=== PATIENT | female | born 1945 | race Caucasian/White ===

== ENCOUNTER 2016-10-22 14:45 | Observation (INO) ==
[2016-10-22] MEDS ORDERED: Aspirin 81 MG TAB.CHEW PO ONE (14:49)
--- NOTE | 2016-10-22 14:57 | Emergency Department Note ---
Disposition Clinical Impression: Chest pain Qualifiers: Chest pain type: unspecified Qualified Code(s): R07.9 - Chest pain, unspecified Disposition: Admitted As Inpatient Condition: Fair Referrals: Elías,Shannon Fried CNP [Primary Care Provider] - Time of Disposition: 16:16 Chest Pain HPI - General Stated Complaint: Chest Pain Time Seen by Provider: 10/22/16 14:49 Source: patient Mode of arrival: ambulatory Limitations: no limitations Vital Signs Reviewed: Yes Nursing Notes Reviewed: Yes - History of Present Illness HPI Narrative: 70-year-old comes in complaining of chest tightness for the last couple of days. Patient has no history of heart disease. Risk factors include hypertension. The patient has had no cardiac workup for several years. Pt complaint: chest pain Onset (ago): day(s) (2) Duration: constant Onset: during rest Pain Location: substernal, left chest Severity: mild, moderate Quality: tightness Pain Radiation: none Improves with: movement Worsens with: nothing - Related Data Allergies Allergy/AdvReac Type Severity Reaction Status Date / Time No Known Allergies Allergy Verified 10/04/15 12:44 All systems ED: reviewed and negative except as stated. Constitutional: Denies: fever, chills, weakness, weight change Eyes: Denies: eye pain, eye discharge, vision change ENT ED: Denies: ear pain, throat pain, dental pain, hearing loss, epistaxis, congestion, dysphagia Cardiovascular: Reports: chest pain. Denies: palpitations, dyspnea on exertion , edema, syncope Respiratory: Denies: cough, dyspnea, wheezes, hemoptysis, stridor Gastrointestinal: Denies: abdominal pain, nausea, vomiting, diarrhea, constipation, hematemesis, melena, hematochezia Genitourinary: Denies: dysuria, frequency, hematuria, discharge Musculoskeletal: Denies: back pain, neck pain, arthralgia, myalgia Integumentary: Denies: rash, abrasion, lesions Neurological: Denies: headache, weakness, numbness, paresthesias, confusion, abnormal gait, vertigo Psychiatric: Denies: anxiety, depression, suicidal thoughts, homicidal thoughts , auditory hallucinations, visual hallucinations Endocrine: Denies: fatigue Hematological/Lymphatic: Denies: easy bleeding, easy bruising Allergic/Immunologic: Denies: facial swelling, urticaria Chest Pain PMH - Past Medical History Medical history: Reports: COPD, hypertension Surgical history: Reports: cataract Psychiatric history: Reports: no psych history - Social History Smoking Status: Current every day smoker Alcohol use: Reports: none Drug use: Reports: none Physical Exam - General Limitations: no limitations General appearance: alert, in no apparent distress - Head Head exam: atraumatic, normocephalic, normal inspection - Eye Eye exam: Present: normal appearance - ENT ENT exam: normal exam, normal oropharynx, mucous membranes moist - Neck Neck exam: Present: normal inspection, full ROM, trachea midline - Chest Chest inspection: Present: normal inspection, symmetric chest wall rise - Respiratory Respiratory exam: Present: normal lung sounds bilaterally - Cardiovascular Cardiovascular exam: Present: regular rate, normal rhythm, normal heart sounds - Abdominal Exam Abdominal exam: Present: soft, Non-Tender. Absent: tenderness, distention, guarding, rebound, rigidity - Extremities Exam Extremities exam: Present: normal inspection, full ROM. Absent: tenderness, pedal edema - Expanded Lower Extremity Exam Neurovascular/Tendon exam: Absent: motor deficit, sensory deficit, tendon deficit Gait: observed and normal - Back Exam Back exam: Present: normal inspection, full ROM. Absent: tenderness - Neurological Exam Neurological exam: Present: alert, oriented X3 - Psychiatric Psychiatric exam: Present: normal affect, normal mood - Skin Skin exam: Present: warm, dry, intact, normal color Course - Reevaluation(s) Reevaluation #1: 70-year-old with a history of hypertension who comes in complaining some intermittent chest pain for last few days. Patient's had no recent cardiac workup. Does have risk factors of hypertension, age. Patient will be admitted for evaluation. Time: 16:27 - Consultations Consultation #1: Discussed with Dr. Hernandez, admit. Time: 16:28 Vital Signs Temperature 98.1 F 10/22/16 14:49 Pulse Rate 76 10/22/16 14:49 Respiratory Rate 16 10/22/16 14:49 Blood Pressure 188/96 10/22/16 14:49 O2 Sat by Pulse Oximetry 97 10/22/16 14:49 Temperature 98.1 F 10/22/16 14:49 Pulse Rate 76 10/22/16 14:49 Respiratory Rate 16 10/22/16 14:49 Blood Pressure 188/96 10/22/16 14:49 O2 Sat by Pulse Oximetry 97 10/22/16 14:49 Oxygen Delivery Oxygen Delivery Room Air Chest Pain - Lab Data Lab results reviewed: Yes I reviewed the patient's lab results. Result diagrams: 10/22/16 15:30 10/22/16 15:30 Lab Results 10/22/16 10/22/16 10/22/16 Range/Units 15:30 15:30 15:30 WBC 8.2 (4.3-11.1) K/mcL RBC 4.76 (3.82-4.97) M/mcL Hgb 13.6 (11.5-15.4) g/dL Hct 42.5 (35.3-44.9) % MCV 89.3 (83.0-100.0) fL MCH 28.6 (28.0-33.3) pg MCHC 32.0 (31.6-35.5) g/dL RDW 14.0 (11.5-14.5) % Plt Count 229 (140-400) K/mcL MPV 10.1 (9.4-12.4) fL Immature Gran % 0.5 (0-4) % Seg Neutrophils % 65.9 % Lymphocytes % 23.7 % Monocytes % 8.3 % Eosinophils % 1.1 % Basophils % 0.5 % Neutrophils # 5.4 (1.6-8.9) K/mcL Lymphocytes # 1.9 (0.6-4.6) K/mcL Monocytes # 0.7 (0.0-1.3) K/mcL Eosinophils # 0.1 (0.0-0.6) K/mcL Basophils # 0.0 (0.0-0.2) K/mcL PT 11.3 (9.4-12.1) Seconds INR 1.0 APTT 27.0 (26.0-36.0) Seconds Sodium (136-145) mEq/L Potassium (3.5-4.5) mEq/L Chloride (98-109) mEq/L Carbon Dioxide (19-29) mEq/L BUN (7-20) mg/dL Creatinine (0.57-1.11) mg/dL Est GFR ( Amer) (> 60) Est GFR (Non-Af Amer) (> 60) BUN/Creatinine Ratio (6-26) Glucose (70-99) mg/dL Calculated Osmolality (280-300) Calcium (8.6-10.8) mg/dL Troponin I (0-0.03) ng/mL B-Natriuretic Peptide 223 H (0-100) pg/mL 10/22/16 10/22/16 Range/Units 15:30 15:30 WBC (4.3-11.1) K/mcL RBC (3.82-4.97) M/mcL Hgb (11.5-15.4) g/dL Hct (35.3-44.9) % MCV (83.0-100.0) fL MCH (28.0-33.3) pg MCHC (31.6-35.5) g/dL RDW (11.5-14.5) % Plt Count (140-400) K/mcL MPV (9.4-12.4) fL Immature Gran % (0-4) % Seg Neutrophils % % Lymphocytes % % Monocytes % % Eosinophils % % Basophils % % Neutrophils # (1.6-8.9) K/mcL Lymphocytes # (0.6-4.6) K/mcL Monocytes # (0.0-1.3) K/mcL Eosinophils # (0.0-0.6) K/mcL Basophils # (0.0-0.2) K/mcL PT (9.4-12.1) Seconds INR APTT (26.0-36.0) Seconds Sodium 141 (136-145) mEq/L Potassium 3.2 L (3.5-4.5) mEq/L Chloride 103 (98-109) mEq/L Carbon Dioxide 31 H (19-29) mEq/L BUN 15 (7-20) mg/dL Creatinine 0.99 (0.57-1.11) mg/dL Est GFR ( Amer) > 60 (> 60) Est GFR (Non-Af Amer) 55 L (> 60) BUN/Creatinine Ratio 15 (6-26) Glucose 119 H (70-99) mg/dL Calculated Osmolality 294 (280-300) Calcium 9.7 (8.6-10.8) mg/dL Troponin I 0.02 (0-0.03) ng/mL B-Natriuretic Peptide (0-100) pg/mL - EKG Data EKG attestation: Yes I reviewed and interpreted this EKG. EKG shows normal: sinus rhythm Rate: normal Rhythm: NSR Ectopy: PVC Interpretation: no acute changes, nonspecific ST-T wave changes Heart Score - Score History: Moderately Suspicious EKG: Non Specific repolarisation Disturbance Age: Greater than 65 Risk Factors: 1-2 risk factors Troponin: Less than normal limit HEART Score Total: 5
[2016-10-22 15:37] LABS: Basophils % 0.5 %; Eosinophils # 0.1 K/mcL (0.0-0.6); Eosinophils % 1.1 %; Hematocrit 42.5 % (35.3-44.9); Hemoglobin 13.6 g/dL (11.5-15.4); Immature Granulocytes % 0.5 % (0-4); Lymphocytes # 1.9 K/mcL (0.6-4.6); Lymphocytes % 23.7 %; Mean Corpuscular Hemoglobin 28.6 pg (28.0-33.3); Mean Corpuscular Volume 89.3 fL (83.0-100.0); Mean Platelet Volume 10.1 fL (9.4-12.4); Monocytes # 0.7 K/mcL (0.0-1.3); Monocytes % 8.3 %; Neutrophils # 5.4 K/mcL (1.6-8.9); Platelet Count 229 K/mcL (140-400); Red Blood Count 4.76 M/mcL (3.82-4.97); Segmented Neutrophils % 65.9 %
[2016-10-22 15:46] LABS: Prothrombin Time 11.3 Seconds (9.4-12.1)
[2016-10-22 15:51] LABS: BUN/Creatinine Ratio 15 (6-26); Blood Urea Nitrogen 15 mg/dL (7-20); Calcium 9.7 mg/dL (8.6-10.8); Carbon Dioxide 31 mEq/L (19-29); Chloride 103 mEq/L (98-109); Glucose 119 mg/dL (70-99); Osmolality,Calculated 294 (280-300); Potassium 3.2 mEq/L (3.5-4.5); Sodium 141 mEq/L (136-145); eGFR For African Americans > 60 (> 60); eGFR For Non-African Americans 55 (> 60)
[2016-10-22] MEDS ORDERED: Ipratropium/Albuterol Neb 3 ML IH ONE (16:16)
[2016-10-22] MEDS ORDERED: Naloxone 0.4 MG/ML INJ IVP PRN (17:05)
[2016-10-22] MEDS ORDERED: Acetaminophen 325 MG TABLET PO PRN (17:05)
--- NOTE | 2016-10-22 17:21 | Internal Med History&Physical ---
Date of Encounter: 10/22/16 Time of Encounter: 17:14 Assessment and Plan (1) Chest pain Current visit: Yes Status: Acute Acute CP with dyspnea for three days. HTN in the ED. EKG obtained and showed new st depression in v4, v5. Reports taking BB and HCTZ at home. Initial troponin negative at 0.02. Continue BB, and HCTZ Trend troponins, Echocardiogram ordered Nuclear exercise stress orderd O2 PRN Qualifiers: Chest pain type: unspecified Qualified Code(s): R07.9 - Chest pain, unspecified (2) HTN (hypertension) Current visit: Yes Status: Chronic H/O HTN. Initially elevated in the ED but has since become more stable with last SBP 155. Resume home BB and HCTZ, and continue to monitor and titrate as necessary. Adding IVP hydralazine PRN to assist with BP management. Hold metoprolol and NPO after midnight for nuclear stress in the AM. Qualifiers: Hypertension type: essential hypertension Qualified Code(s): I10 - Essential (primary) hypertension (3) COPD (chronic obstructive pulmonary disease) Current visit: Yes Status: Acute Acute on chronic COPD exacerbation. New chest pain and dyspnea. Responded favorably to breathing treatment. Duonebs QID. Continue home dose of Symbicort and albuterolol PRN. O2 as needed PRN maintain SP02 greater than 92% Qualifiers: COPD type: COPD with acute exacerbation Qualified Code(s): J44.1 - Chronic obstructive pulmonary disease with (acute) exacerbation (4) Hypokalemia due to loss of potassium Current visit: Yes Status: Acute Hypokalemia noted on ED labs, with potassium of 3.2 Likely d/t medications. 40meq potassium ordered for one time dose. Continue home dose of 10meq potassium tomorrow. BMP in the AM. (5) DVT prophylaxis Current visit: Yes Status: Acute Plan to start SC lovenox Internal Medicine - H&P: HPI Chief complaint: chest pain, dyspnea Admitted From: Home Plans for Post Hospital Care: Home History of present illness: Ms. Zamora is a 70 year old female with a PMH of HTN, and COPD who presented to [facility] on 10-22-16 with a CC of chest discomfort starting 3 days ago and worsening dyspnea. All information obtained from chart review and patient report. She describes the chest discomfort as constant pressure in the entire upperchest. She admits that the dyspnea is worse with activity. Patient denies any fevers, palpitations, edema, syncope, or worsening cough. Admits to worsening SOB, and intermittent dizziness for the last three days. She did receive a breathing treatment in the ED and admits that it did help with both the chest pain and dyspnea. HTN in the ED, a Troponin was drawn in the ED and was 0.02, hypokalemia noted in lab work. The plan is to admit her for observation and further workup and evaluation. Past Med Surg Social Fam HX - Past Medical History Medical history: COPD, hypertension Psychiatric history: no psych history - Past Surgical History Surgical History: cataract - Social History Smoking Status: Current every day smoker Alcohol use: none Drug use: none - Family History Sister History Unknown: Yes Adopted: Yes Race: Family Member Ethnicity: Non- Living Status: Unknown Hx Family Endocrine Disorder: Yes (DM) Internal Medicine - H&P: Meds Albuterol Sulfate [Ventolin Hfa] 2 puff IH Q4H PRN 10/22/16 [History] Budesonide/Formoterol 160/4.5 [Symbicort 160/4.5] 2 puff IH BIDR 10/22/16 [ History] Guaifenesin [Mucinex] 600 mg PO Q12H PRN 10/22/16 [History] Metoprolol [Lopressor] 50 mg PO BID 10/22/16 [History] Oxygen 2 l NS HS 10/22/16 [History] Potassium Chloride [Klor-Con 10] 10 meq PO DAILY 10/22/16 [History] hydroCHLOROthiazide [Hydrochlorothiazide] 12.5 mg PO DAILY 10/22/16 [History] Allergies No Known Allergies Allergy (Verified 10/04/15 12:44) All Systems PM: A 10-system review of systems was performed and is negative for pertinent findings except as documented above in the HPI. - Constitutional Constitutional: no chills, no fever(s), no night sweats - EENT Eyes: no change in vision, no discharge, no pain, no photophobia Ears: no ear discharge, no ear pain, no tinnitus Nose, mouth and throat: no dysphagia, no nasal discharge, no neck pain, no sore throat - Cardiovascular Cardiovascular ROS IM: chest pain, dyspnea on exertion, no diaphoresis, no edema , no irregular heart rhythm, no lightheadedness, no palpitations, no syncope Additional comments: Admits to worsening dyspnea on exertion - Respiratory Respiratory: dyspnea on exertion, no dyspnea, no wheezing, no pain on inspiration, no chest congestion, no excessive phlegm production, no pain with cough Additional comments: No appreciable changes in chronic COPD related cough - Gastrointestinal Gastrointestinal: no abdominal pain, no diarrhea, no hematemesis, no hematochezia, no melena, no nausea, no vomiting - Genitourinary Genitourinary: no change in urinary stream, no dysuria, no flank pain, no hematuria - Musculoskeletal Musculoskeletal ROS IM: no numbness, no tingling - Integumentary Integumentary IM: no rash, no unusual bruising - Neurological Neurological ROS: no confusion, no convulsions, no focal weakness, no numbness, no tingling, no tremor(s) - Hematologic/Lymphatic Hematologic/Lymphatic: no easy bruising - Constitutional Vitals: Temp Pulse Resp BP Pulse Ox 98.1 F 76 18 188/96 95 10/22/16 14:49 10/22/16 14:49 10/22/16 16:36 10/22/16 14:49 10/22/16 16:36 General appearance: Present: cooperative, A&O X 3, pleasant, no acute distress, answers questions appropriately - Head Head exam: Present: atraumatic, normocephalic - Eye Eye exam: Present: PERRL, conjuntiva pink, sclera anicteric Pupils: Present: PERRL - Neck Neck exam general surgery: Present: supple, trachea midline. Absent: lymphadenopathy - Respiratory Respiratory exam: Present: decreased breath sounds. Absent: accessory muscle use, rales, rhonchi Additional comments: Fine expiratory wheezing noted, however, she was not SOB and on RA at the time of exam. NAD - Cardiovascular Cardiovascular exam: Present: RRR, +S1, +S2. Absent: diastolic murmur, gallop, rubs, systolic murmur - GI/Abdominal GI/Abdominal exam: Present: normal bowel sounds, soft, no peritoneal signs. Absent: distended, tenderness - Extremities Exam Extremities exam: Present: warm, radial pulses palpable and symmetrical. Absent : calf tenderness, cyanotic, pedal edema - Expanded Lower Extremities Exam Lower Leg exam: Absent: swelling - Neurological Exam Neurological exam: Present: CN II-XII intact, oriented X3, no focal deficits. Absent: pronater drift, facial droop, speech deficit - Skin Skin exam: Present: dry, intact Internal Med - H&P Results - Labs CBC & Chem 7: 10/22/16 15:30 10/22/16 15:30 - EKG Data EKG shows normal: sinus rhythm, ST-T waves (old non-specific t wave) Rate: normal - EKG Data Prior EKG available for review: yes Interpretation IM: ischemic changes (possible ischemic changes noted in V4, V5 with ST depression in comparision to old EKG)
[2016-10-22] MEDS ORDERED: *HR* Metoprolol 5 MG/5 ML VIAL IVP PRN (17:41)
[2016-10-22] MEDS ORDERED: NON-FORMULARY MEDICATION 1 EACH EACH (Oxygen [Oxygen] 2 L) NS SCH (21:00)
[2016-10-22] MEDS: Budesonide/Formoterol 160/4.5 MDI IH SCH (21:30)
[2016-10-22] MEDS: Ipratropium/Albuterol Neb 3 ML IH SCH (21:30)
[2016-10-23] MEDS: Ipratropium/Albuterol Neb 3 ML IH SCH ×2 (04:03→11:28)
[2016-10-23] MEDS ORDERED: *HR* Enoxaparin 40 MG/0.4 ML SYRINGE SQ SCH (06:00)
[2016-10-23 06:56] LABS: Basophils % 0.5 %; Eosinophils # 0.1 K/mcL (0.0-0.6); Eosinophils % 1.2 %; Hematocrit 43.4 % (35.3-44.9); Hemoglobin 14.3 g/dL (11.5-15.4); Immature Granulocytes % 0.1 % (0-4); Immature Platelets 4.8 % (1.1-6.1); Lymphocytes # 2.3 K/mcL (0.6-4.6); Lymphocytes % 30.4 %; Mean Corpuscular HGB Conc 32.9 g/dL (31.6-35.5); Mean Corpuscular Hemoglobin 29.1 pg (28.0-33.3); Mean Corpuscular Volume 88.2 fL (83.0-100.0); Mean Platelet Volume 10.8 fL (9.4-12.4); Monocytes # 0.7 K/mcL (0.0-1.3); Monocytes % 8.6 %; Neutrophils # 4.6 K/mcL (1.6-8.9); Platelet Count 208 K/mcL (140-400); Red Blood Count 4.92 M/mcL (3.82-4.97); Segmented Neutrophils % 59.2 %
[2016-10-23 07:10] LABS: BUN/Creatinine Ratio 16 (6-26); Blood Urea Nitrogen 13 mg/dL (7-20); Calcium 9.4 mg/dL (8.6-10.8); Carbon Dioxide 29 mEq/L (19-29); Chloride 106 mEq/L (98-109); Glucose 97 mg/dL (70-99); Osmolality,Calculated 300 (280-300); Potassium 3.4 mEq/L (3.5-4.5); Sodium 145 mEq/L (136-145); eGFR For African Americans > 60 (> 60); eGFR For Non-African Americans > 60 (> 60)
[2016-10-23] MEDS ORDERED: Regadenoson 0.4 MG/5 ML SYRINGE IVP ONE (08:14)
[2016-10-23] MEDS ORDERED: hydroCHLOROthiazide 25 MG TABLET PO SCH (09:00)
[2016-10-23] MEDS: Budesonide/Formoterol 160/4.5 MDI IH SCH (11:28)
[2016-10-23 11:41] VITALS: BP 168/89
--- NOTE | 2016-10-23 11:57 | Nuclear Medicine Stress Report ---
Regadenoson Nuclear Stress Name: Tremayne Zamora Date of Study: 10/23/2016 Date: 1945 Ht: 66.0 in Medical Record#: [id number] Age: 70 Wt: 189.0 lb Gender: Female Order #: [id number] Location: [facility] Room: [facility] Supervising Provider: Arabella Gaming CNP Reading Physician: Augustine Durbin DO, FACC, FASAK Ordering Physician: Elizabeth Beebe CNP Primary Care Physician: Shannon Mckinley CNP Stress Technologist: Caitlin Dickinson SITE AUDITOR, CCT Printing Equipment Mechanic Apprentice: Kateryna Luna Indications: Chest Pain Impression: Pharmacologic stress ECG is non-diagnostic for ischemia due to submaximal HR. Frequent PVCs, sometimes couplets, noted during stress. Gated EF = 47%. Gating likely affected by PVCs. Small size, mild intensity, fixed apical septal defect consistent with artifact. Perfusion imaging was negative for ischemia or infarct. History: Hypertension History of Smoking Stress Test Summary: Stress Test Type: Pharmacologic Regadenoson 0.4mg/5ml given IV Baseline Information: Initial Heart Rate: 66 Blood Pressure: 182/84 Stress Information: Test Terminated Due to (primary): As per protocol Maximum Blood Pressure: 188/90 Maximum Heart Rate: 86 Percent Maximum Heart Rate Achieved: 57 Double Product: [id number] METS Reached: 1 Symptoms: No chest symptoms Nuclear Summary: SPECT myocardial perfusion imaging using Tc99m Sestamibi given intravenously was performed at rest and following cardiac stress testing. The resting images were obtained following initial dose of 11.7 mCi. Following stress an additional dose of 34.9 mCi was given at peak exercise or 30 seconds post regadenoson infusion. Medication Given: Time Medication Dose Units Route Findings: Stress Note * Resting ECG demonstrated normal sinus rhythm. * No baseline arrhythmias were noted. * Pharmacologic stress ECG is non-diagnostic for ischemia due to submaximal HR. * Frequent PVCs, sometimes couplets, noted during stress. * Chest discomfort reported at rest. No symptoms reported during stress. Hemodynamic responses * Normal hemodynamic responses to pharmacologic stress. Study Quality * Study quality is average. Gated EF % * Gated EF = 47%. Gating likely affected by PVCs. Left Ventricle * LVEDV = 134 mL. NORMALS * Normal wall motion. Apical Perfusion Rest * The apical septal segment shows a mild reduction in perfusion. Apical Perfusion Stress * The apical septal segment shows a mild reduction in perfusion. TID * No evidence of transient ischemic dilatation. TID ratio * TID ratio = 0.95. Lung Uptake * There is no evidence of increase lung uptake. Updated by Augustine Durbin DO, FACRomelia, JENNI, ADDISON on 10/23/2016 11:51:18 AM electronically signed on 10/23/2016 11:51:58 AM with status of Final
--- NOTE | 2016-10-23 15:21 | Discharge Summary ---
Date of Encounter: 10/23/16 Time of Encounter: 15:19 - Discharge Diagnosis (1) Chest pain Priority: Primary Status: Acute Qualifiers: Chest pain type: unspecified Qualified Code(s): R07.9 - Chest pain, unspecified (2) Shortness of breath Priority: Primary Status: Acute (3) Diastolic CHF Priority: Secondary Status: Acute Qualifiers: Qualified Code(s): I50.30 - Unspecified diastolic (congestive) heart failure (4) HTN (hypertension) Priority: Secondary Status: Chronic Qualifiers: Hypertension type: essential hypertension Qualified Code(s): I10 - Essential (primary) hypertension (5) COPD (chronic obstructive pulmonary disease) Priority: Secondary Status: Acute Qualifiers: COPD type: COPD with acute exacerbation Qualified Code(s): J44.1 - Chronic obstructive pulmonary disease with (acute) exacerbation - Discharge Medications Prescriptions: Furosemide [Lasix] 20 mg PO DAILY #30 tablet Home Medications: Albuterol Sulfate [Ventolin Hfa] 2 puff IH Q4H PRN 10/22/16 [History] Budesonide/Formoterol 160/4.5 [Symbicort 160/4.5] 2 puff IH BIDR 10/22/16 [ History] Guaifenesin [Mucinex] 600 mg PO Q12H PRN 10/22/16 [History] Metoprolol [Lopressor] 50 mg PO BID 10/22/16 [History] Oxygen 2 l NS HS 10/22/16 [History] Potassium Chloride [Klor-Con 10] 10 meq PO DAILY 10/22/16 [History] Furosemide [Lasix] 20 mg PO DAILY #30 tablet 10/23/16 [Rx] Allergies/Adverse Reactions: Allergies No Known Allergies Allergy (Verified 10/04/15 12:44) Procedures/tests Complete & Pending: Procedures Performed prior 72 hours Category Date Time Status NM magalis perf SPECT multi [NM] Routine Exams 10/22/16 17:14 Taken EV echocardiogram Routine Y 10/23/16 10:30 Completed SP pharm nuclear stress Routine Y 10/23/16 07:05 Completed Date of admission: 10/22/16 16:37 Primary care physician: Shannon Mckinley CNP - Patient Status Disposition: Home, Self-Care Condition: Good Overall status at discharge: patient is back to baseline - Discharge Instructions Follow Up With: Shannon Mckinley CNP [Primary Care Provider] - Forms: ED Satisfaction Letter - Diet and Activity Activity: increase activity as tolerated Diet: low salt diet Hospital course: Ms. Zamora is a 70 year old female with a PMH of HTN, and COPD who presented to [facility] on 10-22-16 with a CC of chest discomfort starting 3 days ago and worsening dyspnea. Pt was admitted to [facility] and placed her on cadiac monitor. Checked serial troponin which were negative. She did go for cardiac stress test which came back as negative. Her 2D Echo showed normal LVEF with 55-60%. Normal LV chamber size, wall thickness and function. Mild left ventricular diastolic dysfunction noticed. Pt does have significantly elevated BNP and her symptoms consistent with heart failure. She was on HCTZ 12.5 only at home, at her age, I recommended her to start taking Lasix instead of HCTZ. Provided her Rx with Lasix 20mg Daily. Also educated her if she gets more SOB / Weight gain / LE edema take extra Lasix as needed. Placed a call to PCP to discuss about this instructions. - Time Spent with Patient Total time spent providing and/or coordinating discharge services: - Constitutional Vitals: Temp Pulse Resp BP Pulse Ox 97.5 F L 59 17 168/89 100 10/23/16 11:40 10/23/16 11:40 10/23/16 11:40 10/23/16 11:40 10/23/16 11:40 General appearance: Present: cooperative, A&O X 3, pleasant, no acute distress, answers questions appropriately - Head Head exam: Present: atraumatic, normal inspection - Respiratory Respiratory exam: Present: decreased breath sounds, wheezes. Absent: rales, respiratory distress, rhonchi - Cardiovascular Cardiovascular exam: Present: RRR, +S1, +S2. Absent: systolic murmur - Extremities Exam Extremities exam: Absent: calf tenderness, pedal edema, tenderness - Psychiatric Psychiatric exam: Present: normal affect, normal mood
--- NOTE | 2016-10-23 20:16 | Electrocardiograph Report ---
[place] [id number] Test Date: 2016-10-22 Pat Name: Tremayne Zamora Department: 102 Room: 3B55 Gender: F Distance Learning Coordinator: Angely : 1945 Requested By: Sincere Cerna Order Number: [id number] Reading MD: Cristian Izaguirre MD Measurements Intervals [place] Rate: 72 P: 44 MT: 153 QRS: 11 QRSD: 114 T: 77 QT: 393 QTc: 417 Interpretive Statements SINUS RHYTHM WITH OCCASIONAL VENTRICULAR PREMATURE COMPLEX Electronically Signed On 10-23-2016 20:15:24 EDT by Cristian Izaguirre MD
== END 2016-10-23 16:00 | disposition home or self-care (01) ==
LOC: 3BNU 14:45 → EMEROO 14:45 → 3BNU 17:44
PROVIDERS: ADMIT Nurse Practitioner Family; ATTEND Nurse Practitioner Family

== ENCOUNTER 2018-11-11 14:25 | Observation (INO) ==
--- NOTE | 2018-11-11 14:34 | Emergency Department Note ---
Disposition Referrals: Shannon Mckinley CNP [Primary Care Provider] - GI Bleed HPI - General Stated complaint: chest pain - Related Data Home Medications Medication Instructions Recorded Confirmed Albuterol Sulfate [Ventolin Hfa] 2 puff IH Q4H PRN 10/22/16 10/22/16 Budesonide/Formoterol 160/4.5 2 puff IH BIDR 10/22/16 10/22/16 [Symbicort 160/4.5] Guaifenesin [Mucinex] 600 mg PO Q12H PRN 10/22/16 10/22/16 Metoprolol [Lopressor] 50 mg PO BID 10/22/16 10/22/16 Oxygen 2 l NS HS 10/22/16 10/22/16 Potassium Chloride [Klor-Con 10] 10 meq PO DAILY 10/22/16 10/22/16 Previous Rx's Medication Instructions Recorded Furosemide [Lasix] 20 mg PO DAILY #30 tablet 10/23/16 Azithromycin [Zithromax] 250 mg PO DAILY #6 tablet 04/05/17 predniSONE [PredniSONE] 10 mg PO DAILY #21 tablet 04/05/17 Allergies Allergy/AdvReac Type Severity Reaction Status Date / Time No Known Allergies Allergy Verified 04/05/17 12:16 Past Medical History - Past Medical History Medical history: Reports: CHF, COPD, hypertension Surgical history: Reports: cataract Psychiatric history: Reports: no psych history - Social History Smoking Status: Former smoker Smokeless Tobacco Status: No Alcohol use: Reports: none Drug use: Reports: none
--- NOTE | 2018-11-11 14:35 | Emergency Department Note ---
Disposition Clinical Impression: Hypokalemia Chest pain Qualifiers: Chest pain type: unspecified Qualified Code(s): R07.9 - Chest pain, unspecified Disposition: Admitted As Inpatient Referrals: Shannon Mckinley CNP [Primary Care Provider] - Time of Disposition: 16:25 General Adult HPI - General Stated complaint: chest pain Source: patient, family Mode of arrival: private vehicle Limitations: no limitations Nursing Notes Reviewed: Yes Vital Signs Reviewed: Yes - History of Present Illness HPI Narrative: Patient is a 73-year-old female with a past medical history including CHF, COPD, hypertension presenting with a chief complaint of chest pain that started 4 days ago. The patient states she was working in the yard several days ago. She developed some substernal chest pain that radiates to bilateral ribs and is a sharp quality that has been intermittent in the last 4 days. She takes Tylenol with improvement in the pain. She states the pain can happen at any time. She denies any headaches, lightheadedness, shortness of breath, nausea or vomiting, abdominal pain, diarrhea, unilateral weakness or numbness, lower extremity swelling. She denies recent travel or surgery, history of cancer, hemoptysis, hormone use, history of DVT or PE. She states she followed up with her family physician who did an EKG and sent the patient and based off the EKG findings. She denies fevers or chills. She denies history of coronary artery disease, prior stroke, peripheral arterial disease, stent placements. - Related Data Home Medications Medication Instructions Recorded Confirmed Albuterol Sulfate [Ventolin Hfa] 2 puff IH Q4H PRN 10/22/16 11/11/18 Budesonide/Formoterol 160/4.5 2 puff IH BIDR 10/22/16 11/11/18 [Symbicort 160/4.5] Guaifenesin [Mucinex] 600 mg PO Q12H PRN 10/22/16 11/11/18 Metoprolol [Lopressor] 50 mg PO BID 10/22/16 11/11/18 Oxygen 2 l NS HS 10/22/16 11/11/18 Potassium Chloride [Klor-Con 10] 10 meq PO BID 10/22/16 11/11/18 Furosemide [Lasix] 20 mg PO DAILY 11/11/18 11/11/18 hydroCHLOROthiazide 25 mg PO DAILY 11/11/18 11/11/18 [Hydrochlorothiazide] Allergies Allergy/AdvReac Type Severity Reaction Status Date / Time No Known Allergies Allergy Verified 04/05/17 12:16 All systems ED: reviewed and negative except as stated. Review of Systems: As Per HPI Constitutional: Denies: fever, chills Cardiovascular: Reports: chest pain. Denies: palpitations, edema, syncope Respiratory: Denies: cough, dyspnea Gastrointestinal: Denies: abdominal pain, nausea, vomiting Neurological: Denies: headache, weakness, numbness Past Medical History - Past Medical History Attestation: Yes The following information was validated with the patient. Source: patient Medical history: Reports: CHF, COPD, hypertension Surgical history: Reports: cataract Psychiatric history: Reports: no psych history - Social History Smoking Status: Former smoker Smokeless Tobacco Status: No Alcohol use: Reports: none Drug use: Reports: none Physical Exam - General Limitations: no limitations General appearance: alert, in no apparent distress - Head Head exam: atraumatic, normocephalic - Eye Eye exam: Present: normal appearance, EOMI - ENT ENT exam: normal exam, mucous membranes moist - Neck Neck exam: Present: normal inspection, trachea midline - Chest Chest inspection: Present: normal inspection, symmetric chest wall rise - Respiratory Respiratory exam: Present: normal lung sounds bilaterally. Absent: respiratory distress, wheezes - Cardiovascular Cardiovascular exam: Present: regular rate, normal rhythm, other (bilateral radial pulses) - Abdominal Exam Abdominal exam: Present: soft, Non-Tender. Absent: distention - Extremities Exam Extremities exam: Present: normal capillary refill. Absent: pedal edema, calf tenderness - Neurological Exam Neurological exam: Present: alert, oriented X3 - Psychiatric Psychiatric exam: Present: normal affect, normal mood - Skin Skin exam: Present: warm, dry. Absent: diaphoresis, pallor Course Vital Signs Temperature 98.3 F 11/11/18 14:36 Pulse Rate 75 11/11/18 14:36 Respiratory Rate 16 11/11/18 14:36 Blood Pressure 139/83 11/11/18 14:36 O2 Sat by Pulse Oximetry 95 11/11/18 14:36 Temperature 98.3 F 11/11/18 14:36 Pulse Rate 77 11/11/18 15:49 Respiratory Rate 18 11/11/18 15:49 Blood Pressure 126/70 11/11/18 15:49 O2 Sat by Pulse Oximetry 94 11/11/18 15:49 Oxygen Delivery Oxygen Delivery Room Air Medical Decision Making - MDM Narrative Medical decision making narrative: Patient has chest pain intermittently for the last 4 days and resolves with tylenol. Patient saw her primary care physician who sent her in secondary to an abnormal EKG. She was sent here for cardiac evaluation. EKG here shows ST depression in lead 2, V5, V6 however is unchanged compared to old EKG in 2018. There are no new changes and no ST elevations meeting STEMI criteria. Patient has a heart score of 4. Wells for PE negative. Will obtain cardiac workup and admit the patient for ACS workup. Aspirin will be given. 15:38 Patient's potassium is low and we will give her by mouth potassium. Troponin 0.03. Chest x-ray shows no acute cardiopulmonary abnormality. Will admit the patient for ACS workup and hypokalemia. She is on lasix and HCTZ. 16:[address] mSith, hospitalist who accepts admission. - Medical Records Medical records reviewed: Yes I reviewed the patient's medical records. - Lab Data Lab results reviewed: Yes I reviewed the patient's lab results. Result diagrams: 11/11/18 14:40 11/11/18 14:40 Lab Results 11/11/18 11/11/18 11/11/18 Range/Units 14:40 14:40 14:40 WBC 3.8 L (4.3-11.1) K/mcL RBC 5.29 H (3.82-4.97) M/mcL Hgb 15.3 (11.5-15.4) g/dL Hct 46.1 H (35.3-44.9) % MCV 87.1 (83.0-100.0) fL MCH 28.9 (28.0-33.3) pg MCHC 33.2 (31.6-35.5) g/dL RDW 14.3 (11.5-14.5) % Plt Count 161 (140-400) K/mcL MPV 9.5 (9.4-12.4) fL Immature Gran % 0.3 (0-4) % Seg Neutrophils % 50.0 % Lymphocytes % 33.1 % Monocytes % 16.0 % Eosinophils % 0.3 % Basophils % 0.3 % Neutrophils # 1.9 (1.6-8.9) K/mcL Lymphocytes # 1.3 (0.6-4.6) K/mcL Monocytes # 0.6 (0.0-1.3) K/mcL Eosinophils # 0.0 (0.0-0.6) K/mcL Basophils # 0.0 (0.0-0.2) K/mcL Sodium 135 L (136-145) mEq/L Potassium 2.9 L (3.5-5.1) mEq/L Chloride 92 L (98-107) mEq/L Carbon Dioxide 31 H (23-29) mEq/L BUN 15 (8-23) mg/dL Creatinine 1.12 (0.60-1.20) mg/dL Est GFR ( Amer) 58 L (> 60) Est GFR (Non-Af Amer) 48 L (> 60) BUN/Creatinine Ratio 13 (6-26) Glucose 133 H (70-105) mg/dL Calculated Osmolality 283 (280-300) Calcium 9.3 (8.6-10.3) mg/dL Troponin I 0.03 (< 0.04) ng/mL B-Natriuretic Peptide 38 (Less than 100) pg/mL - Radiology Data Radiology results reviewed: Yes I reviewed the patient's radiology results. Chest X-Ray 11/11/18 14:46 IMPRESSION: No significant interval change. No radiographic evidence of acute cardiopulmonary process. D/ / Prashant Taylor MD / Prashant Taylor MD Interpreting Provider: Prashant Taylor MD - EKG Data EKG #1 EKG attestation: Yes I reviewed and interpreted this EKG. EKG results narrative: EKG obtained at 1439 shows sinus rhythm with heart rate 72, GA interval 180, QRS duration 113, QTC 433, left ventricular hypertrophy, no ST elevation, ST depression in lead 2, V5, V6, compared to old EKG on 04/05/2017 which shows no new changes. Heart Score - Score History: Slightly Suspicious EKG: Non Specific repolarisation Disturbance Age: Greater than 65 Risk Factors: 1-2 risk factors Troponin: Less than normal limit HEART Score Total: 4
[2018-11-11] MEDS ORDERED: Aspirin 81 MG TAB.CHEW PO ONE (14:57)
[2018-11-11 15:02] LABS: Basophils % 0.3 %; Eosinophils % 0.3 %; Hematocrit 46.1 % (35.3-44.9); Hemoglobin 15.3 g/dL (11.5-15.4); Immature Granulocytes % 0.3 % (0-4); Lymphocytes # 1.3 K/mcL (0.6-4.6); Lymphocytes % 33.1 %; Mean Corpuscular HGB Conc 33.2 g/dL (31.6-35.5); Mean Corpuscular Hemoglobin 28.9 pg (28.0-33.3); Mean Corpuscular Volume 87.1 fL (83.0-100.0); Mean Platelet Volume 9.5 fL (9.4-12.4); Monocytes # 0.6 K/mcL (0.0-1.3); Neutrophils # 1.9 K/mcL (1.6-8.9); Platelet Count 161 K/mcL (140-400); Red Blood Count 5.29 M/mcL (3.82-4.97); Red Cell Distribution Width 14.3 % (11.5-14.5); White Blood Count 3.8 K/mcL (4.3-11.1)
[2018-11-11 15:23] LABS: Calcium 9.3 mg/dL (8.6-10.3); Potassium 2.9 mEq/L (3.5-5.1); Troponin I 0.03 ng/mL (< 0.04)
[2018-11-11] MEDS ORDERED: Ondansetron 4 MG/2 ML VIAL IVP PRN (16:40)
[2018-11-11] MEDS ORDERED: Acetaminophen 325 MG TABLET PO PRN (16:40)
--- NOTE | 2018-11-11 16:43 | Internal Med History&Physical ---
Date of Encounter: 11/11/18 Time of Encounter: 16:43 Internal Medicine - H&P: HPI Chief complaint: Chest pain Admitted From: Emergency Dept History of present illness: Tennille Zamora is a 73 F w hx HFpEF, HTN, COPD, former smoker, obesity, who p/w chest pain. Pain is pressure-like, started 4 days ago, is intermittent, occurred first with exertion but now spontaneously, does radiate to back. No N/V, SOB, diaphoresis. Tylenol does seem to help. No cardiac history. Last stress normal in 2017, last TTE unremarkable earlier this year. In the ED, vitals unremarkable. ECG w slight ST depressions in inferior leads, unchanged from previous ECG. CXR normal. Labs notable only for K 2.9, Cl 92, trop 0.03. HEART score of 4-5 so admitted for further workup. Past medical, surgical, social, and family histories reviewed and updated as below. No FHx CAD/PR/CVAs. Past Med Surg Social Fam HX - Past Medical History Medical history: CHF, COPD, hypertension Psychiatric history: no psych history - Past Surgical History Surgical History: cataract Additional surgical history: colonoscopy - jaw surgery - heart cath - Social History Smoking Status: Former smoker Smokeless Tobacco Status: No Alcohol use: none Drug use: none - Family History Sister Adopted: Yes Family Member Ethnicity: Non- Living Status: Unknown Hx Family Cardiac Disorders: Yes Hx Family Cancer: Yes (lung and bowel cancer) Hx Family Endocrine Disorder: Yes (DM) Internal Medicine - H&P: Meds Albuterol Sulfate [Ventolin Hfa] 2 puff IH Q4H PRN 10/22/16 [History] Budesonide/Formoterol 160/4.5 [Symbicort 160/4.5] 2 puff IH BIDR 10/22/16 [History] Guaifenesin [Mucinex] 600 mg PO Q12H PRN 10/22/16 [History] Metoprolol [Lopressor] 50 mg PO BID 10/22/16 [History] Oxygen 2 l NS HS 10/22/16 [History] Potassium Chloride [Klor-Con 10] 10 meq PO BID 10/22/16 [History] Furosemide [Lasix] 20 mg PO DAILY 11/11/18 [History] hydroCHLOROthiazide [Hydrochlorothiazide] 25 mg PO DAILY 11/11/18 [History] Allergy/AdvReac Type Severity Reaction Status Date / Time No Known Allergies Allergy Verified 04/05/17 12:16 All Systems PM: A 10-system review of systems was performed and is negative for pertinent findings except as documented above in the HPI. - Constitutional Vitals: Temp Pulse Resp BP Pulse Ox 98.3 F 77 18 126/70 94 11/11/18 14:36 11/11/18 15:49 11/11/18 15:49 11/11/18 15:49 11/11/18 15:49 Exam: General: NAD, good eye contact, well appearing Head: Atraumatic, normocephalic. Face symmetric Eyes: EOMI, sclerae anicteric ENT: Mucous membranes moist. Normal oral mucosa and dentition. Trachea midline. Thoracic: No visible chest wall deformities. Normal breath sounds b/l, no wheezing or crackles Cardio: Normal S1 and S2, regular rate and rhythm, no murmurs Abdomen: Soft, nontender, nondistended. Extremities: Warm, well perfused. DP pulses 2+ b/l. No clubbing, cyanosis. No edema Skin: Intact. No rashes, bruises, or ulcers Neuro: Awake, fully oriented. Good memory, concentration, attention. Speech fluent. CN II-XII grossly intact. Strength 5/5 in b/l UE and LE Internal Med - H&P Results - Labs CBC & Chem 7: 11/11/18 14:40 11/11/18 14:40 Labs: Short CBC 11/11/18 Range/Units 14:40 WBC 3.8 L (4.3-11.1) K/mcL Hgb 15.3 (11.5-15.4) g/dL Hct 46.1 H (35.3-44.9) % Plt Count 161 (140-400) K/mcL Neutrophils # 1.9 (1.6-8.9) K/mcL BMP 11/11/18 14:40 Sodium 135 L Potassium 2.9 L Chloride 92 L Carbon Dioxide 31 H BUN 15 Creatinine 1.12 Glucose 133 H Calcium 9.3 Cardiac Enzymes 11/11/18 Range/Units 14:40 Troponin I 0.03 (< 0.04) ng/mL - Impressions ITS Impressions Chest X-Ray 11/11/18 14:46 IMPRESSION: No significant interval change. No radiographic evidence of acute cardiopulmonary process. D/ / Prashant Taylor MD / Prashant Taylor MD Interpreting Provider: Prashant Taylor MD - Summary of Assessment and Plan Summary of Assessment and Plan: Tennille Zamora is a 73 F w hx HFpEF, HTN, COPD on 2L qhs, former smoker, obesity, who p/w atypical chest pain. Atypical chest pain: ECG unremarkable, trop x1 negative. HEART score 4 or 5 - trend trops - tele - TTE - Lexiscan in AM Hypokalemia: replace and monitor HFpEF: euvolemic to hypovolemic, holding home lasix 20 daily and hctz 25 daily due to hypokalemia HTN: home lopressor 50 bid COPD and chronic hypoxic respiratory failure: on home 2L qhs, home ventolin & symbicort Obesity: BMI 31 PPx: ambulate Tele: yes Activity: ambulate FEN: cardiac then NPO@MN, no MIVF Lines: PIV Consults: Code: Full Dispo: obs for chest pain, anticipate homegoing tomorrow if stress test is negative
--- NOTE | 2018-11-11 17:08 | Emergency Department Note ---
Disposition Clinical Impression: Hypokalemia Chest pain Qualifiers: Chest pain type: unspecified Qualified Code(s): R07.9 - Chest pain, unspecified Disposition: Admitted As Inpatient Condition: Good Time of Disposition: 16:25 General Adult HPI - General Chief complaint: ED Chest Pain Stated complaint: chest pain Time Seen by Provider: 11/11/18 15:51 Source: patient, family Mode of arrival: private vehicle Limitations: no limitations - History of Present Illness Pain Scale: 8 - Related Data Home Medications Medication Instructions Recorded Confirmed Albuterol Sulfate [Ventolin Hfa] 2 puff IH Q4H PRN 10/22/16 11/11/18 Budesonide/Formoterol 160/4.5 2 puff IH BIDR 10/22/16 11/11/18 [Symbicort 160/4.5] Guaifenesin [Mucinex] 600 mg PO Q12H PRN 10/22/16 11/11/18 Metoprolol [Lopressor] 50 mg PO BID 10/22/16 11/11/18 Oxygen 2 l NS HS 10/22/16 11/11/18 Potassium Chloride [Klor-Con 10] 10 meq PO BID 10/22/16 11/11/18 Furosemide [Lasix] 20 mg PO DAILY 11/11/18 11/11/18 hydroCHLOROthiazide 25 mg PO DAILY 11/11/18 11/11/18 [Hydrochlorothiazide] Allergies Allergy/AdvReac Type Severity Reaction Status Date / Time No Known Allergies Allergy Verified 04/05/17 12:16 Constitutional: Denies: fever, chills Cardiovascular: Reports: chest pain. Denies: palpitations, edema, syncope Respiratory: Denies: cough, dyspnea Gastrointestinal: Denies: abdominal pain, nausea, vomiting Neurological: Denies: headache, weakness, numbness Past Medical History - Past Medical History Medical history: Reports: CHF, COPD, hypertension Surgical history: Reports: cataract Psychiatric history: Reports: no psych history - Social History Smoking Status: Former smoker Smokeless Tobacco Status: No Alcohol use: Reports: none Drug use: Reports: none Physical Exam - General Limitations: no limitations General appearance: alert, in no apparent distress Course Vital Signs Temperature 98.3 F 11/11/18 14:36 Pulse Rate 75 11/11/18 14:36 Respiratory Rate 16 11/11/18 14:36 Blood Pressure 139/83 11/11/18 14:36 O2 Sat by Pulse Oximetry 95 11/11/18 14:36 Temperature 99.1 F 11/11/18 19:00 Pulse Rate 81 11/11/18 19:00 Respiratory Rate 18 11/11/18 19:41 Blood Pressure 110/70 11/11/18 19:00 O2 Sat by Pulse Oximetry 91 11/11/18 19:41 Oxygen Delivery Oxygen Delivery Room Air Medical Decision Making - Lab Data Result diagrams: 11/11/18 14:40 11/11/18 14:40 Lab Results 11/11/18 11/11/18 11/11/18 Range/Units 14:40 14:40 14:40 WBC 3.8 L (4.3-11.1) K/mcL RBC 5.29 H (3.82-4.97) M/mcL Hgb 15.3 (11.5-15.4) g/dL Hct 46.1 H (35.3-44.9) % MCV 87.1 (83.0-100.0) fL MCH 28.9 (28.0-33.3) pg MCHC 33.2 (31.6-35.5) g/dL RDW 14.3 (11.5-14.5) % Plt Count 161 (140-400) K/mcL MPV 9.5 (9.4-12.4) fL Immature Gran % 0.3 (0-4) % Seg Neutrophils % 50.0 % Lymphocytes % 33.1 % Monocytes % 16.0 % Eosinophils % 0.3 % Basophils % 0.3 % Neutrophils # 1.9 (1.6-8.9) K/mcL Lymphocytes # 1.3 (0.6-4.6) K/mcL Monocytes # 0.6 (0.0-1.3) K/mcL Eosinophils # 0.0 (0.0-0.6) K/mcL Basophils # 0.0 (0.0-0.2) K/mcL Sodium 135 L (136-145) mEq/L Potassium 2.9 L (3.5-5.1) mEq/L Chloride 92 L (98-107) mEq/L Carbon Dioxide 31 H (23-29) mEq/L BUN 15 (8-23) mg/dL Creatinine 1.12 (0.60-1.20) mg/dL Est GFR ( Amer) 58 L (> 60) Est GFR (Non-Af Amer) 48 L (> 60) BUN/Creatinine Ratio 13 (6-26) Glucose 133 H (70-105) mg/dL Calculated Osmolality 283 (280-300) Calcium 9.3 (8.6-10.3) mg/dL Troponin I 0.03 (< 0.04) ng/mL B-Natriuretic Peptide 38 (Less than 100) pg/mL 11/11/18 Range/Units 17:56 WBC (4.3-11.1) K/mcL RBC (3.82-4.97) M/mcL Hgb (11.5-15.4) g/dL Hct (35.3-44.9) % MCV (83.0-100.0) fL MCH (28.0-33.3) pg MCHC (31.6-35.5) g/dL RDW (11.5-14.5) % Plt Count (140-400) K/mcL MPV (9.4-12.4) fL Immature Gran % (0-4) % Seg Neutrophils % % Lymphocytes % % Monocytes % % Eosinophils % % Basophils % % Neutrophils # (1.6-8.9) K/mcL Lymphocytes # (0.6-4.6) K/mcL Monocytes # (0.0-1.3) K/mcL Eosinophils # (0.0-0.6) K/mcL Basophils # (0.0-0.2) K/mcL Sodium (136-145) mEq/L Potassium (3.5-5.1) mEq/L Chloride (98-107) mEq/L Carbon Dioxide (23-29) mEq/L BUN (8-23) mg/dL Creatinine (0.60-1.20) mg/dL Est GFR ( Amer) (> 60) Est GFR (Non-Af Amer) (> 60) BUN/Creatinine Ratio (6-26) Glucose (70-105) mg/dL Calculated Osmolality (280-300) Calcium (8.6-10.3) mg/dL Troponin I 0.03 (< 0.04) ng/mL B-Natriuretic Peptide (Less than 100) pg/mL Attestation Statement - Attestation Attestation: I examined this patient and my medical decision-making was reviewed with the Resident Physician. I agree with the documented findings, disposition and treatment plan as described except to the extent set forth below. Patient is 73-year-old female presents to emergency department with chief complaint of chest pain. The patient states been having intermittent chest discomfort states that she was seen by her primary care physician is in her to the emergency department for evaluation. Physical exam patient is awake alert no acute distress Medical decision management initial EKG showed no evidence of acute ischemic changes from previous EKGs patient was found to be hypokalemic. The case was discussed with the hospitalist the patient will be admitted to the hospital for observation for treatment for both hypokalemia I personally supervised and was present for the mcgill/critical portions of the following procedures completed by the resident:EKG.
[2018-11-11] MEDS: Budesonide/Formoterol 160/4.5 1 PUFF INH IH SCH (19:40)
[2018-11-11] MEDS ORDERED: NON-FORMULARY MEDICATION 1 EACH EACH (Oxygen 2 L) NS SCH (21:00)
[2018-11-12 02:36] LABS: Hemoglobin 13.8 g/dL (11.5-15.4); Mean Corpuscular HGB Conc 32.9 g/dL (31.6-35.5); Mean Corpuscular Hemoglobin 28.6 pg (28.0-33.3); Mean Corpuscular Volume 87.1 fL (83.0-100.0); Platelet Count 140 K/mcL (140-400); Red Blood Count 4.82 M/mcL (3.82-4.97); Red Cell Distribution Width 14.1 % (11.5-14.5); White Blood Count 4.1 K/mcL (4.3-11.1)
[2018-11-12 02:57] LABS: BUN/Creatinine Ratio 16 (6-26); Blood Urea Nitrogen 15 mg/dL (8-23); Calcium 8.6 mg/dL (8.6-10.3); Carbon Dioxide 26 mEq/L (23-29); Chloride 98 mEq/L (98-107); Glucose 109 mg/dL (70-105); Magnesium 1.6 mg/dL (1.6-2.6); Osmolality,Calculated 281 (280-300); Potassium 3.5 mEq/L (3.5-5.1); Sodium 135 mEq/L (136-145); eGFR For African Americans > 60 (> 60); eGFR For Non-African Americans 58 (> 60)
[2018-11-12 02:58] LABS: Troponin I 0.03 ng/mL (< 0.04)
[2018-11-12] MEDS ORDERED: Regadenoson 0.4 MG/5 ML SYRINGE IVP ONE (06:13)
[2018-11-12] MEDS: Budesonide/Formoterol 160/4.5 1 PUFF INH IH SCH ×2 (10:01→20:31)
--- NOTE | 2018-11-12 12:25 | Internal Med Progress Note ---
Hospitalist Progress Note - Encounter Date of Encounter: 11/12/18 Time of Encounter: 11:00 - Subjective Interval History: Ms. Zamora is a 73 F w hx HFpEF, HTN, COPD who does use 2 lit O2 at night time, former smoker, and obesity pt presented to ER with chest pain. She did mention she has been having some lower abd discomfort which radiating to her back too. She was admitted in the hospital and placed her on manager cardiac cath. Her serial troponin were negative. She denied any more CP. She denied any Abd pain now. However she c/o diarrhea today. - Exam Vitals: Temp Pulse Resp BP Pulse Ox 98.7 F 67 16 99/60 97 11/12/18 11:17 11/12/18 11:17 11/12/18 11:17 11/12/18 11:17 11/12/18 11:59 Exam: Gen: Alert, awake, Oriented to time,place and person Chest: Diminished breath sounds B/L, No wheezing, No crackles, No rales Heart: S1S2+ RRR No murmurs Abd: Soft, NT, BS +, No organomegaly Ext: No edema, pulses are palpable, Left leg calf tenderness + Neuro : No acute focal neuro deficits noticed Skin: No rash. - Assessment and Plan (1) Fever Current Visit: Yes Status: Acute Assessment and Plan: She does have fever spikes.. Had T max 102.8 this morning No clear source of inf yet could be due to gastroenteritis cont close monitoring on Tylenol prn ordered UA and stool GI panel She also c/o left leg calf pain.. So ordered Venous doppler (2) Gastroenteritis Current Visit: Yes Status: Acute Assessment and Plan: Mostly viral no need of abx cont close monitoring ordered stool GI panel cont symptomatic and supportive care (3) Chest pain Current Visit: Yes Status: Acute Assessment and Plan: Serial trop x 3 negative no acute EKG changes her stress test came back as negative for ischemia / infarction Started her on ASA 81mg and cont Metoprolol (4) COPD (chronic obstructive pulmonary disease) Current Visit: No Status: Chronic Assessment and Plan: stable not in exacerbation (5) Diastolic CHF Current Visit: No Status: Chronic Assessment and Plan: stable not in exacerbation resumed all home meds (6) HTN (hypertension) Current Visit: No Status: Chronic Assessment and Plan: stable BP with current meds cont close monitoring (7) Hypokalemia Current Visit: Yes Status: Acute Assessment and Plan: resolved - Time Spent with Patient Total time spent is greater than 50% in coordination of care (as documented) at patient's floor/unit and/or counseling patient: Internal Medicine: Result - Labs CBC & Chem 7: 11/12/18 01:54 11/12/18 01:54 Labs: Short CBC 11/11/18 11/12/18 Range/Units 14:40 01:54 WBC 3.8 L 4.1 L (4.3-11.1) K/mcL Hgb 15.3 13.8 D (11.5-15.4) g/dL Hct 46.1 H 42.0 (35.3-44.9) % Plt Count 161 140 (140-400) K/mcL Neutrophils # 1.9 (1.6-8.9) K/mcL BMP 11/11/18 11/12/18 14:40 01:54 Sodium 135 L 135 L Potassium 2.9 L 3.5 Chloride 92 L 98 Carbon Dioxide 31 H 26 BUN 15 15 Creatinine 1.12 0.95 Glucose 133 H 109 H Calcium 9.3 8.6 Cardiac Enzymes 11/11/18 11/11/18 11/12/18 Range/Units 14:40 17:56 01:54 Troponin I 0.03 0.03 0.03 (< 0.04) ng/mL - Impressions Impressions Chest X-Ray 11/11/18 14:46 IMPRESSION: No significant interval change. No radiographic evidence of acute cardiopulmonary process. D/ / Prashant Taylor MD / Prashant Taylor MD Interpreting Provider: Prashant Taylor MD Consult Discharge Plan - Plan Instructions: Chest Pain (DC) (3) Chest pain Qualifiers: Chest pain type: unspecified Qualified Code(s): R07.9 - Chest pain, unspecified (4) COPD (chronic obstructive pulmonary disease) Qualifiers: COPD type: unspecified COPD Qualified Code(s): J44.9 - Chronic obstructive pulmonary disease, unspecified (5) Diastolic CHF Qualifiers: Heart failure chronicity: chronic Qualified Code(s): I50.32 - Chronic diastolic (congestive) heart failure (6) HTN (hypertension) Qualifiers: Hypertension type: essential hypertension Qualified Code(s): I10 - Essential (primary) hypertension
--- NOTE | 2018-11-12 14:28 | Electrocardiograph Report ---
[address] [place], [place] [address] Test Date: 2018-11-11 Pat Name: Tremayne Zamora Department: [id number] Room: 3B37 Gender: F [employer] Supervisor: : 1945 Requested By: Quin Perez Order Number: [id number] Reading MD: Augustine Durbin Measurements Intervals [place] Rate: 72 P: 66 MD: 180 QRS: -73 QRSD: 113 T: 67 QT: 395 QTc: 433 Interpretive Statements Sinus rhythm LAD, consider left anterior fascicular block Possible left ventricular hypertrophy Anterior infarct, old Electronically Signed On 11-12-2018 14:27:30 EDT by Augustine Durbin
[2018-11-12 15:54] LABS: Adenovirus Not Detected (Not Detect); Bordetella Pertussis Not Detected (Not Detect); Chlamydophila pneumoniae Not Detected (Not Detect); Coronavirus 229E Not Detected (Not Detect); Coronavirus HKU1 Not Detected (Not Detect); Coronavirus NL63 Not Detected (Not Detect); Coronavirus OC43 Not Detected (Not Detect); Human Metapneumovirus Not Detected (Not Detect); Human Rhinovirus/Enterovirus Not Detected (Not Detect); Influenza A Subtype 2009 H1 Not Detected (Not Detect); Influenza A Untypeable Not Detected (Not Detect); Influenza B Not Detected (Not Detect); Mycoplasma pneumoniae Not Detected (Not Detect); Parainfluenza Virus 1 Not Detected (Not Detect); Parainfluenza Virus 2 Not Detected (Not Detect); Parainfluenza Virus 3 Not Detected (Not Detect); Parainfluenza Virus 4 Not Detected (Not Detect); Respiratory Syncytial Virus Not Detected (Not Detect)
[2018-11-12 17:48] LABS: Bilirubin,Urine Negative (Negative); Blood,Urine Moderate (Negative); Clarity,Urine Clear (Clear); Color,Urine Yellow (Yellow); Glucose,Urine (UA) Normal (Normal); Ketones,Urine Negative (Negative); Leukocyte Esterase,Urine Moderate (Negative); Nitrite,Urine Negative (Negative); Protein,Urine Trace mg/dL (Neg-Trace); Specific Gravity,Urine 1.021 (1.010-1.025); Urobilinogen,Urine Normal (Normal)
[2018-11-12 17:50] LABS: Bacteria,Urine Few per hpf (None-Few); Hyaline Casts,Urine None Seen per lpf (None-Few); Squamous Epithelial Cell,Urine Many per lpf (None-Few); WBC,Urine 30-50 per hpf (0-3)
[2018-11-12] MEDS ORDERED: *HR* Heparin 5,000 UNIT/ML VIAL IVP ONE (21:49)
[2018-11-12] MEDS ORDERED: *HR* Heparin 5,000 UNIT/ML VIAL IVP PRN ×2 (21:49)
--- NOTE | 2018-11-12 21:53 | Event Note ---
Date of Encounter: 11/12/18 Time of Encounter: 21:34 Alerted by patient's nurse SHIKHA Vogel that patient was here for chest pain that was found to have left lower DVT. Vascular preliminary note showed left lower extremity venous duplex positive for acute DVT in peroneal vein. Negative for SVT. Concern regarding patient's drop in hemoglobin from 15.3 yesterday to 13.8 today of unknown etiology. Stat fecal Hemoccult ordered. Stat heparin Xa factor ordered. Standard dose heparin drip ordered and will start following Xa results. Nurse instructed to continue monitoring this ptl. very closely and alert me immediately of any adverse changes.
[2018-11-12] MEDS ORDERED: Heparin 25,000 UNIT/250 ML D5W 25,000 UNIT/250 ML IV.SOLN IVC SCH (22:00)
[2018-11-12 22:23] LABS: Hematocrit 39.4 % (35.3-44.9); Hemoglobin 13.1 g/dL (11.5-15.4); Mean Corpuscular HGB Conc 33.2 g/dL (31.6-35.5); Mean Corpuscular Hemoglobin 28.4 pg (28.0-33.3); Mean Corpuscular Volume 85.5 fL (83.0-100.0); Platelet Count 125 K/mcL (140-400); Red Blood Count 4.61 M/mcL (3.82-4.97); Red Cell Distribution Width 14.5 % (11.5-14.5); White Blood Count 4.4 K/mcL (4.3-11.1)
[2018-11-12 22:31] LABS: Prothrombin Time 11.4 Seconds (9.4-12.1)
[2018-11-13] MEDS: Budesonide/Formoterol 160/4.5 1 PUFF INH IH SCH (07:57)
[2018-11-13] MEDS ORDERED: cefTRIAXone 1,000 MG in Water for inj. (sterile) 10 ML IVP SCH (10:00)
[2018-11-13 11:28] VITALS: BP 101/65
[2018-11-13] MEDS ORDERED: *HR* Rivaroxaban 15 MG TABLET PO SCH (11:30)
[2018-11-13] MEDS ORDERED: Isovue-370 500 ML BOTTLE IVP ONE (12:13)
--- NOTE | 2018-11-13 13:46 | Discharge Summary ---
- NOTES TO OUTPATIENT PROVIDER Notes to Outpatient Provider: f/u with PCP in one week. Please start taking Xarelto 15mg PO BID x 21 days then continue at 20mg PO Daily. Orders not resulted at time of discharge: Pending orders 11/12/18 17:26 Culture,Urine [RM] Routine 11/12/18 21:46 Fecal Hemoccult [Occult Blood,Stool] [BF] Stat Date of Encounter: 11/13/18 Time of Encounter: 13:43 - Discharge Diagnosis (1) Acute deep vein thrombosis of left peroneal vein Priority: Primary Status: Acute (2) Gastroenteritis Priority: Primary Status: Acute (3) UTI (urinary tract infection) Priority: Secondary Status: Acute Qualifiers: Urinary tract infection type: acute cystitis Hematuria presence: without hematuria Qualified Code(s): N30.00 - Acute cystitis without hematuria (4) Chest pain Priority: Secondary Status: Acute Qualifiers: Chest pain type: unspecified Qualified Code(s): R07.9 - Chest pain, unspecified (5) COPD (chronic obstructive pulmonary disease) Priority: Secondary Status: Chronic Qualifiers: COPD type: unspecified COPD Qualified Code(s): J44.9 - Chronic obstructive pulmonary disease, unspecified (6) Diastolic CHF Priority: Secondary Status: Chronic Qualifiers: Heart failure chronicity: chronic Qualified Code(s): I50.32 - Chronic diastolic (congestive) heart failure (7) HTN (hypertension) Priority: Secondary Status: Chronic Qualifiers: Hypertension type: essential hypertension Qualified Code(s): I10 - Essential (primary) hypertension (8) Hypokalemia Priority: Secondary Status: Acute Hospital course: Ms. Zamora is a 73 F w hx HFpEF, HTN, COPD who does use 2 lit O2 at night time, former smoker, and obesity pt presented to ER with chest pain. She did mention she has been having some lower abd discomfort which radiating to her back too. 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 Her serial troponin were negative. Her EKG did not show any acute ischemic changes. She did go for nuclear stress test which came back as negative for ischemia/infarction. Patient also complain about abdominal pain with some diarrhea probably secondary to gastroenteritis which improved today. She also had abnormal UA concerning for UTI so started her on amp IV antibiotic Rocephin. She did complaining about left lower extremity pain for which I did venous Doppler which came back as positive for acute DVT in Peroneal vein in left leg. So patient was started on heparin drip last night. Her CTA of the chest came back as negative for PE. She did have stable 4 mm RLL nodule over last 2 yrs. Regarding her acute DVT patient wanted to try Xarelto, so will d/c her home in stable condition with PO Xarleto and PO abx Keflex. Will talk to PCP to update on hospital course. - Time Spent with Patient Total time spent providing and/or coordinating discharge services: - Discharge Medications Prescriptions: New Cephalexin [Keflex] 500 mg PO TID #15 capsule Rivaroxaban [Xarelto] 1 dose PO AD 30 Days pack Continued Budesonide/Formoterol 160/4.5 [Symbicort 160/4.5] 2 puff IH BIDR Metoprolol [Lopressor] 50 mg PO BID Potassium Chloride [Klor-Con 10] 10 meq PO BID Guaifenesin [Mucinex] 600 mg PO Q12H PRN PRN Reason: Congestion Albuterol Sulfate [Ventolin Hfa] 2 puff IH Q4H PRN PRN Reason: Shortness Of Breath hydroCHLOROthiazide [Hydrochlorothiazide] 25 mg PO DAILY Furosemide [Lasix] 20 mg PO DAILY Montelukast [Singulair] 10 mg PO DAILY Home Medications: Albuterol Sulfate [Ventolin Hfa] 2 puff IH Q4H PRN 10/22/16 [History] Budesonide/Formoterol 160/4.5 [Symbicort 160/4.5] 2 puff IH BIDR 10/22/16 [History] Guaifenesin [Mucinex] 600 mg PO Q12H PRN 10/22/16 [History] Metoprolol [Lopressor] 50 mg PO BID 10/22/16 [History] Potassium Chloride [Klor-Con 10] 10 meq PO BID 10/22/16 [History] Furosemide [Lasix] 20 mg PO DAILY 11/11/18 [History] hydroCHLOROthiazide [Hydrochlorothiazide] 25 mg PO DAILY 11/11/18 [History] Montelukast [Singulair] 10 mg PO DAILY 11/12/18 [History] Cephalexin [Keflex] 500 mg PO TID #15 capsule 11/13/18 [Rx] Rivaroxaban [Xarelto] 1 dose PO AD 30 Days pack 11/13/18 [Rx] Allergies/Adverse Reactions: Allergy/AdvReac Type Severity Reaction Status Date / Time No Known Allergies Allergy Verified 04/05/17 12:16 Date of admission: 11/11/18 18:22 Primary care physician: Shannon Mckinley CNP - Constitutional Vitals: Temp Pulse Resp BP Pulse Ox 99.1 F 67 16 101/65 90 11/13/18 11:26 11/13/18 11:26 11/13/18 11:26 11/13/18 11:26 11/13/18 11:26 General appearance: Present: cooperative, A&O X 3, no acute distress, answers questions appropriately Exam: Gen: Alert, awake, Oriented to time,place and person Chest: Diminished breath sounds B/L, No wheezing, No crackles, No rales Heart: S1S2+ RRR No murmurs Abd: Soft, NT, BS +, No organomegaly Ext: No edema, pulses are palpable, Mild Left calf tenderness Neuro : No acute focal neuro deficits noticed Skin: No rash. - Patient Status Disposition: Home, Self-Care Condition: Good Overall status at discharge: patient is back to baseline - Discharge Instructions Instructions: Chest Pain (DC) Follow Up With: Shannon Mckinley CNP [Primary Care Provider] - 11/23/18 9:00 am Forms: ED Satisfaction Letter - Diet and Activity Activity: increase activity as tolerated Diet: low salt diet
== END 2018-11-13 15:26 | disposition home or self-care (01) ==
LOC: EMEROOARM 14:25 → 3BNU 14:25 → SUATTDRO 18:22 → 3BNU 18:53
PROVIDERS: ADMIT Internal Medicine; ATTEND Family Medicine